=== PATIENT | male | born 1985 | race Caucasian/White ===

== ENCOUNTER 2018-03-15 20:54 | Emergency (ER) | payer OTHER ==
[2018-03-16 00:56] LABS: URINE BLOOD (Dip) POC Negative (NEGATIVE); URINE GLUCOSE (Dip) POC Negative (NEGATIVE); URINE KETONES (Dip) POC Negative (NEGATIVE); URINE LEUKOCYTE EST (Dip) POC Negative (NEGATIVE); URINE NITRITE (Dip) POC Negative (NEGATIVE); URINE TOTAL PROTEIN POC Negative (NEGATIVE)
[2018-03-16 00:56] LABS: URINE PH (Dip) POC 5.5 (5.0-8.5)
== END 2018-03-16 01:23 | disposition home or self-care (01) ==
LOC: FTE 20:54
DX: R35.8 Other polyuria (principal)
CPT/HCPCS: 81003; 82962; 99282